=== PATIENT | male | born 1965 | race Caucasian/White ===

== ENCOUNTER 2024-12-01 10:17 | Emergency (ER) | payer OTHER, SELFPAY ==
[2024-12-01 10:21] VITALS: BP 142/80; PULSE 89; RESP 20; TEMP 37.2; O2SAT 96
--- NOTE | 2024-12-01 10:38 | ED_ITS ---
HPI - Extremity Problem General Chief complaint: Extremity Problem,Nontraumatic Stated complaint: sore joints, swelling Time Seen by Provider: 12/01/24 10:31 History of Present Illness HPI Narrative: Pt presents with aching joints all over today and some generalized swelling to his extremities for the last week. Pt had been started on new statin a few weeks ago and thought his symptoms might be related to that so he stopped taking it but his symptoms have remained. Related Data Home Medications ?Medication ?Instructions ?Recorded ?Confirmed ?Last Taken ?Type meloxicam 15 mg tablet 15 mg PO .PRN 11/18/24 12/01/24 Unknown History rosuvastatin 5 mg tablet 5 mg PO DAILY 11/18/24 12/01/24 Unknown History Allergies Allergy/AdvReac Type Severity Reaction Status Date / Time rosuvastatin Allergy Intermediate Joint Pain Verified 12/01/24 10:28 Penicillins Allergy Mild Rash Verified 12/01/24 10:28 Review of Systems 2 Review of Systems: All systems reviewed & are unremarkable except as noted in HPI and below PMFSH Social History Social History Smoking status: Former smoker Second hand tobacco smoke exposure: No Smoking end date: 09/30/15 Alcohol intake: current Lack of Transportation: No Lack of Food: Never True Current Housing: I Have Housing Concerned About Future Housing: No Difficulty Paying Gas/Electric Bills: No Difficulty Paying for Meds: No Currently Unemployed: No Education: High School Diploma/GED Difficulty w/ Childcare or Family Care: No Exam 2 Const: General: healthy appearing and no acute distress Nutritional Appearance: well nourished Orientation/consciousness: patient oriented x3 Limitations: no limitations HENMT: Head: normal to inspection Mouth: Yes Normal oral and palatal mucosa present Eyes: Conjunctivae: conjunctivae normal EOM: EOMs intact bilaterally Resp: Effort & Inspection: normal respiratory effort Auscultation: clear to auscultation bilaterally Cardio: Rate: regular rate Rhythm: regular rhythm GI: GI Palp: Yes Soft to palpation and No Tenderness to palpation present (GI) Auscultation: normal bowel sounds Back/Spine/Pelvis: Back: no CVA tenderness Skin: General skin exam: normal color Rashes: no rashes Wounds: no wounds Neuro: General: patient oriented x3, moves all extremities, no meningeal signs and no focal motor deficits Speech: normal speech Extrem: Other: mild swelling to ankles and fingers no erythema or warmth Psych: Mental Status: mental status grossly normal Affect: normal affect Attitude: cooperative Course Vital Signs Vital signs: Vital Signs Temperature 98.9 F 12/01/24 10:21 Pulse Rate 89 12/01/24 10:21 Respiratory Rate 20 12/01/24 10:21 Blood Pressure 142/80 H 12/01/24 10:21 Pulse Oximetry 96 12/01/24 10:21 Oxygen Delivery Room Air 12/01/24 10:21 Temperature 98.5 F 12/01/24 12:44 Pulse Rate 76 12/01/24 12:44 Respiratory Rate 21 H 12/01/24 12:44 Blood Pressure 142/83 H 12/01/24 12:44 Pulse Oximetry 97 12/01/24 12:44 Oxygen Delivery Room Air 12/01/24 10:21 MDM - Extremity (Nontraumatic) MDM Narrative Medical decision making narrative: Pt presents with ont pain and swelling to extremities. Thinks it could have been related to cholesterol med so stopped. will check kidney function and ck for possible rahbdo, and esr and cbc. labs unremarkable. will need follow up with PCP for further eval. will try dose of lasix and naprosyn Lab Data 12/01/24 10:58 12/01/24 10:58 Labs: Lab Results 12/01/24 Range/Units 10:58 WBC 8.3 (4.5-10.0) K/mm3 RBC 4.44 L (4.6-6.20) M/mm3 Hgb 13.4 L (14.0-18.0) g/dL Hct 40.2 L (42.0-52.0) % MCV 90.5 (80-100) fl MCH 30.2 (26-34) pg MCHC 33.3 (32-36) g/dl RDW 12.4 (11.5-14.5) % Plt Count 293 (150-375) k/mm3 MPV 8.8 (7.4-10.4) fl Immature Gran % (Auto) 0.5 (0-0.5) % Neut % (Auto) 71.7 (45.5-73.1) % Lymph % (Auto) 16.5 L (18.3-44.2) % [place] % (Auto) 8.7 H (2.6-8.5) % Eos % (Auto) 2.1 (0-4.4) % Baso % (Auto) 0.5 (0.2-1.2) % Lymph # (Auto) 1.37 (0.9-3.2) K/mm3 [place] # (Auto) 0.7 H (0.1-0.6) K/mm3 Eos # (Auto) 0.2 (0-0.3) K/mm3 Baso # (Auto) 0.0 (0.0-0.1) K/mm3 Abs Immat Gran (auto) 0.04 H (0.00-0.031) K/mm3 Absolute Neuts (auto) 5.9 (1.3-6.7) K/mm3 Absolute Nucleated RBC 0.000 (0.0-0.012) K/mm3 Nucleated RBC % 0.0 (0.0-0.2) % ESR 63 H (0-20) mm/hr Sodium 137 (137-145) mmol/L Potassium 4.4 (3.4-5.0) mmol/L Chloride 102 (98-107) mmol/L Carbon Dioxide 23 (22-30) mmol/L Anion Gap 12 (4-12) mmol/L BUN 20 (9-20) mg/dL Creatinine 1.05 (0.7-1.3) mg/dL Estim Creat Clear Calc 85 ml/min Estimated GFR > 60 (59 - ) Glucose 103 (65-110) mg/dL Lactic Acid 1.2 (0.7-2.0) mmol/L Calcium 9.4 (8.4-10.2) mg/dL Total Bilirubin 0.6 (0.2-1.3) mg/dL AST 21 (17-59) U/L ALT 23 (6-50) U/L Alkaline Phosphatase 88 (38-126) U/L Total Creatine Kinase 37 L (55-170) U/L Total Protein 8.0 (6.3-8.2) g/dL Albumin 4.1 (3.5-5.1) g/dL Procalcitonin 0.1 ng/mL Influenza A (RT-PCR) Negative (Negative) Influenza B (RT-PCR) Negative (Negative) RSV (RT-PCR) Negative (Negative) SARS-CoV-2 RNA (RT-PCR) Negative (Negative) Discharge Plan Discharge Clinical Impression: Arthralgia, Swelling Patient Disposition: Home, Self-Care Condition: Stable Instructions: Antibiotic Form, Arthralgia (ED) Patient Language: Greek Prescriptions: New furosemide [Lasix] 20 mg tablet 20 mg PO DAILY Qty: 1 0RF naproxen [Naprosyn] 500 mg tablet 500 mg PO BID Qty: 20 0RF No Action rosuvastatin 5 mg tablet 5 mg PO DAILY meloxicam 15 mg tablet 15 mg PO .PRN lisinopril [Zestril] 10 mg tablet 20 mg PO DAILY Qty: 90 2RF sertraline 50 mg tablet 50 mg PO DAILY Qty: 90 2RF codeine-guaifenesin 10-100 mg/5 mL liquid 5 ml PO Q6H PRN (Reason: cough) Qty: 118 0RF Follow-up/Referrals: Sree Barron DO [Primary Care Provider] -
[2024-12-01 11:06] LABS: Basophils Percent Auto 0.5 % (0.2-1.2); Eosinophils Absolute Auto 0.2 K/mm3 (0-0.3); Eosinophils Percent Auto 2.1 % (0-4.4); Hematocrit 40.2 % (42.0-52.0); Hemoglobin 13.4 g/dL (14.0-18.0); Immature Granulocyte Absolute 0.04 K/mm3 (0.00-0.031); Immature Granulocyte Percent A 0.5 % (0-0.5); Lymphocytes Absolute Auto 1.37 K/mm3 (0.9-3.2); Lymphocytes Percent Auto 16.5 % (18.3-44.2); Mean Corpuscular HGB Conc 33.3 g/dl (32-36); Mean Corpuscular Hemoglobin 30.2 pg (26-34); Mean Corpuscular Volume 90.5 fl (80-100); Mean Platelet Volume 8.8 fl (7.4-10.4); Monocytes Absolute Auto 0.7 K/mm3 (0.1-0.6); Monocytes Percent Auto 8.7 % (2.6-8.5); Neutrophils Absolute Auto 5.9 K/mm3 (1.3-6.7); Neutrophils Percent Auto 71.7 % (45.5-73.1); Platelet Count Result 293 k/mm3 (150-375); Red Blood Count 4.44 M/mm3 (4.6-6.20); Red Cell Distribution Width 12.4 % (11.5-14.5); White Blood Count 8.3 K/mm3 (4.5-10.0)
[2024-12-01 11:17] VITALS: BP 139/84; PULSE 78; RESP 21; O2SAT 95
[2024-12-01 11:19] LABS: Lactic Acid Reflex 1.2 mmol/L (0.7-2.0)
[2024-12-01 11:20] LABS: Alanine Aminotransferase 23 U/L (6-50); Albumin Level 4.1 g/dL (3.5-5.1); Alkaline Phosphatase 88 U/L (38-126); Anion Gap 12 mmol/L (4-12); Aspartate Amino Transferase 21 U/L (17-59); Bilirubin,Total 0.6 mg/dL (0.2-1.3); Blood Urea Nitrogen 20 mg/dL (9-20); Calcium 9.4 mg/dL (8.4-10.2); Carbon Dioxide 23 mmol/L (22-30); Chloride 102 mmol/L (98-107); Creatine Kinase 37 U/L (55-170); Estimated CRCL calculation 85 ml/min; Estimated Glomerular Filt Rate > 60; Glucose 103 mg/dL (65-110); Potassium 4.4 mmol/L (3.4-5.0); Sodium 137 mmol/L (137-145)
[2024-12-01 11:34] LABS: Erythrocyte Sedimentation Rate 63 mm/hr (0-20)
[2024-12-01 11:41] LABS: Influenza A QL RT-PCR Negative (Negative); Influenza B QL RT-PCR Negative (Negative); RSV RNA, RT-PCR Negative (Negative); SARS-CoV-2 RNA PCR Negative (Negative)
[2024-12-01 11:56] LABS: Procalcitonin 0.1 ng/mL
--- OUTSIDE RECORDS SUMMARY | 2024-12-01 12:23 | XMS_ITS | Referral Summary ---
Author Organization [facility] Address [address] [place] [address] Care Team Providers Care Butadiene Compressor Operator Name Role Phone Eliud Mendez Unavailable [phone] Sree Barron DO Unavailable Sree Barron DO Primary Care Provider [phone] Encounters Date Type Department Care Team Description 10/31/2024 10:36 AM PUBLIC RELATIONS MANAGER - 10/31/2024 11:59 PM [facility] Hospital Encounter [facility] ([facility]) [address] [place] [id number] Lung nodule, multiple Discharge Disposition: Discharge to home or self care 10/29/2024 Telephone [facility] ([facility]) [address] [place] [id number] Blessing Camacho, RN 10/28/2024 Telephone [facility] ([facility]) [address] [place] [address] Blessing Camacho, RN 10/02/2024 Telephone [facility] ([facility]) [address] [place] [address] Blessing Camacho, RN 10/02/2024 Telephone [facility] ([facility]) [facility] [place] [address] Blessing Caamcho RN 10/01/[address] [address] Jessica Brady, SHIRA Lung Screening 09/16/2024 Telephone [place] [address] [place] [address] Eulalia Tobias RN FOLLOW UP ON LS ORDER from Last 3 Months Allergies No known active allergies Social History Tobacco Use Types Packs/Day Years Used Date Smoking Tobacco: Never Assessed Sex and Gender Information Value Date Recorded Sex Assigned at Not on file Legal Sex Male 2:03 PM PUBLIC RELATIONS MANAGER Gender Identity Male 12/24/2023 2:58 PM CDT Sexual Orientation Not on file Plan of Treatment Not on file Procedures Procedure Name Priority Date/Time Associated Diagnosis Comments CT CHEST WO CONTRAST Schedule Routine, Read Routine (OP Routine) 10/31/2024 10:46 AM PUBLIC RELATIONS MANAGER Lung nodule, multiple from Last 3 Months Results * CT Chest WO Low Dose Protocol (10/31/2024 10:46 AM PUBLIC RELATIONS MANAGER) Anatomical Region Laterality Modality Body N/A Computed Tomogra phy 10/31/2024 11:0 7 AM PUBLIC RELATIONS MANAGER Impressions 10/31/2024 11:07 AM PUBLIC RELATIONS MANAGER 1. Previously described indeterminate solid and groundglass pulmonary nodules are unchanged. Recommend continued follow-up 2. New indeterminate 3 mm right upper lobe solid pulmonary nodule. Recommend repeat imaging in 12 months. Electronically signed by: Gavin Muhammad M.D. Narrative 10/31/2024 11:07 AM PUBLIC RELATIONS MANAGER EXAMINATION: Computed tomography of the chest without intravenous contrast HISTORY: Pulmonary nodules, follow-up TECHNIQUE: Transaxial computed tomographic images of the chest were obtained without intravenous contrast according to the low-dose protocol. COMPARISON: 2023 FINDINGS: Unchanged scattered indeterminate sub-6 mm solid pulmonary nodules, the largest of which in the left upper lobe measures 6 mm (table position -1172.9). Right upper lobe groundglass opacity measuring 11 mm is also unchanged (table position -1189). New 3 mm right upper lobe solid pulmonary nodule (table position -1239.4). No focal consolidation, pleural effusion, pneumothorax or pulmonary edema. No thoracic lymphadenopathy. Heart size is normal. No pericardial effusion. Thoracic aorta is normal caliber. No acute mild in the imaged upper abdomen. No aggressive osseous lesion Procedure Note Gavin Muhammad MD PhD - 10/31/2024 EXAMINATION: Computed tomography of the chest without intravenous contrast HISTORY: Pulmonary nodules, follow-up TECHNIQUE: Transaxial computed tomographic images of the chest were obtained without intravenous contrast according to the low-dose protocol. COMPARISON: 2023 FINDINGS: Unchanged scattered indeterminate sub-6 mm solid pulmonary nodules, the largest of which in the left upper lobe measures 6 mm (table position -1172.9). Right upper lobe groundglass opacity measuring 11 mm is also unchanged (table position -1189). New 3 mm right upper lobe solid pulmonary nodule (table position -1239.4). No focal consolidation, pleural effusion, pneumothorax or pulmonary edema. No thoracic lymphadenopathy. Heart size is normal. No pericardial effusion. Thoracic aorta is normal caliber. No acute mild in the imaged upper abdomen. No aggressive osseous lesion IMPRESSION: 1. Previously described indeterminate solid and groundglass pulmonary nodules are unchanged. Recommend continued follow-up 2. New indeterminate 3 mm right upper lobe solid pulmonary nodule. Recommend repeat imaging in 12 months. Electronically signed by: Gavin Muhammad M.D. Sree Barron DO [facility] [place] Final Result from Last 3 Months Insurance [employer] [facility] Care Teams Butadiene Compressor Operator Relationship Specialty Start Date End Date Sree Barron DO [address] [facility] [address] [place] [address] PCP - General Internal Medicine 10/02/24 Eliud Mendez PA [address] [place] [address] Referring Physician Physician Dough Mixer Operator 10/07/23 Sree Barron DO [address] [place] [address] Referring Physician Internal Medicine 06/22/24
--- OUTSIDE RECORDS SUMMARY | 2024-12-01 12:23 | XMS_ITS | Clinical Summary ---
Author Organization [facility] Address [address] [place] [address] Care Team Providers Care Bar Catcher Name Role Phone Eliud Mendez Unavailable [phone] Sree Barron DO Unavailable Sree Barron DO Primary Care Provider [phone] Allergies No known active allergies Encounters Date Type Department Care Team Description 10/31/2024 10:36 AM [employer] - 10/31/2024 11:59 PM [employer] Hospital Encounter [facility] ([facility]) [address] [place] [address] Lung nodule, multiple Discharge Disposition: Discharge to home or self care 10/29/2024 Telephone [facility] ([facility]) [address] [place] [address] Blessing Camacho, RN 10/28/2024 Telephone [facility] ([facility]) [address] [place] [address] Blessing Camacho, RN 10/02/2024 Telephone [facility] ([facility]) [address] [place] [address] Blessing Camacho, RN 10/02/2024 Telephone [facility] ([facility]) [address] [place] [address] [place] [address] Blessing Camacho RN 10/01/[address] [address] Jessica Brady, SHIRA Lung Screening 09/16/[address] [address] Eulalia Tobias, SHIRA FOLLOW UP ON LS ORDER from Last 3 Months Social History Tobacco Use Types Packs/Day Years Used Date Smoking Tobacco: Never Assessed Sex and Gender Information Value Date Recorded Sex Assigned at Not on file Legal Sex Male 2:03 PM [employer] Gender Identity Male 12/24/2023 2:58 PM CDT Sexual Orientation Not on file Plan of Treatment Health Maintenance Due Date Last Done Comments Colon Cancer Screening-Colonoscopy 1964 Depression Screening 1964 Hepatitis C Screening 1964 Prostate Cancer Screening-PSA 1964 DTaP/Tdap/Td Vaccine (1 - Tdap) 1975 Hepatitis B Screening 1982 Regular Well Visit/Exam 18-64 1982 Zoster Vaccine (1 of 2) 2014 Influenza Vaccine (#1) 2024 2, 08/30/2020, 08/10/2019, Additional history exists Pneumococcal vaccine <65 Aged Out No longer eligible based on patient's age to complete this topic Procedures Procedure Name Priority Date/Time Associated Diagnosis Comments CT CHEST WO CONTRAST Schedule Routine, Read Routine (OP Routine) 10/31/2024 10:46 AM [employer] Lung nodule, multiple from Last 3 Months Results * CT Chest WO Low Dose Protocol (10/31/2024 10:46 AM [employer]) Anatomical Region Laterality Modality Body N/A Computed Tomogra phy 10/31/2024 11:0 7 AM [employer] Impressions 10/31/2024 11:07 AM [employer] 1. Previously described indeterminate solid and groundglass pulmonary nodules are unchanged. Recommend continued follow-up 2. New indeterminate 3 mm right upper lobe solid pulmonary nodule. Recommend repeat imaging in 12 months. Electronically signed by: Gavin Muhammad M.D. Narrative 10/31/2024 11:07 AM [employer] EXAMINATION: Computed tomography of the chest without [...] by: Gavin Muhammad M.D. Sree Barron DO [facility] [place] PROCEDURES Final Result from Last 3 Months Insurance [employer] [facility] [employer] Care Teams Bar Catcher Relationship Specialty Start Date End Date Sree Barron DO [address] [place] [address] PCP - General Internal Medicine 10/02/24 Eliud Mendez PA [address] [place], [place] [id number] Referring Physician Physician Artificial Stone Applicator 10/07/23 Sree Barron DO [address] [facility] [address] [place], [place] [id number] Referring Physician Internal Medicine 06/22/24
[2024-12-01 12:44] VITALS: BP 142/83; PULSE 76; RESP 21; TEMP 36.9; O2SAT 97
== END 2024-12-01 12:45 | disposition home or self-care (01) ==
PROVIDERS: Emergency Provider Emergency Medicine; PCP Internal Medicine
DX: M25.50 Pain in unspecified joint (principal); R22.9 Localized swelling, mass and lump, unspecified; Z20.822 Contact with and (suspected) exposure to COVID-19
CPT/HCPCS: 36415; 80053; 82550; 83605; 84145; 85025; 85652; 87637; 99283

== ENCOUNTER 2025-05-21 16:04 | Outpatient (CLI) | payer OTHER, SELFPAY ==
--- NOTE | ~2025-05-21 | XR_ITS ---
XR knee LT 3V 05/21/2025 16:26 Indication: Left knee pain Procedure: 3 views left knee Comparison: No prior studies for comparison. Findings: There is mild osteoarthritis of the patellofemoral and medial compartments of the knee. There is a joint effusion. No acute fracture or traumatic malalignment. Impression: 1: Mild polyarticular osteoarthritis of the left knee. Reviewed, dictated and finalized at location O. Impression: 1: Mild polyarticular osteoarthritis of the left knee.
== END 2025-05-21 16:05 | disposition home or self-care (01) ==
PROVIDERS: PCP Internal Medicine; Visit Provider Internal Medicine
DX: M17.12 Unilateral primary osteoarthritis, left knee (principal)
CPT/HCPCS: 73562